=== PATIENT | female | born 1980 | race Caucasian/White ===

== ENCOUNTER 2019-01-03 12:54 | Emergency (ER) | payer BC ==
[~2019-01-03] VITALS: Ht 162.6 cm; Wt 90.7 kg
[2019-01-03] MEDS ORDERED: ANXIETY MED (13:06)
[2019-01-03] MEDS ORDERED: ZYRTEC10 M5 PO (13:06)
[2019-01-03] MEDS ORDERED: BIRTH CONTROL (13:07)
[2019-01-03 13:22] LABS: ABSOLUTE BASOPHILS 0.1 thou/uL (0.0-0.2); ABSOLUTE EOSINOPHILS 0.2 thou/uL (0.0-0.7); ABSOLUTE LYMPHOCYTES 2.1 thou/uL (0.8-5.3); ABSOLUTE MONOCYTES 0.4 thou/uL (0.0-1.2); ABSOLUTE NEUTROPHILS 5.2 thou/uL (1.6-8.1); EOSINOPHILS 2.8 %; HEMATOCRIT 41.2 % (37.0-47.0); HEMOGLOBIN 14.1 gm/dL (12.0-15.0); LYMPHOCYTES 25.8 %; MCH 28.5 pg (26.0-34.0); MCHC 34.1 g/dL (28.0-37.0); MCV 83.4 fL (80.0-100.0); MONOCYTES 4.7 %; MPV 8.6 fl. (7.2-11.1); NUCLEATED RBCS 0 /100WBC; PLATELET COUNT* 364 thou/uL (150-400); POLYS 65.7 %; RBC 4.95 mil/uL (4.20-5.00); RDW-CV 13.9 % (10.5-14.5)
[2019-01-03 13:29] LABS: CALCIUM 8.7 mg/dL (8.5-10.1); CREATININE 0.8 mg/dL (0.6-1.3); POTASSIUM 3.2 mmol/L (3.5-5.1)
[2019-01-03 13:34] LABS: ALBUMIN 3.2 g/dL (3.4-5.0); TOTAL BILIRUBIN 0.3 mg/dL (<0.1-1.0); TOTAL PROTEIN 7.5 g/dL (6.4-8.2)
[2019-01-03 13:43] LABS: APTT 28.9 Seconds (25.0-31.3); PROTIME 10.1 Seconds (9.20-11.50)
[2019-01-03] MEDS ORDERED: PREDNISONE 20 M20 M1 PO (14:08)
[2019-01-03] MEDS ORDERED: ACYCLOVIR 400400 MG PO (14:08)
[2019-01-03 14:30] VITALS: BP 142/91
--- NOTE | 2019-01-03 15:41 | EKG ---
[place] [address] ELECTROCARDIOGRAM REPORT Name: MERY TAVERAS Room: [facility]#: [id number] Admission: 01/03/19 Attend Phys: Discharge: 01/03/19 Date of : 82 Report #: [id number] THIS REPORT FOR: //name// 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
== END 2019-01-03 14:30 | disposition home or self-care (01) ==
LOC: M.ERS 12:54
PROVIDERS: Family Medicine
DX: G51.0 Bell's palsy (principal); F41.9 Anxiety disorder, unspecified